=== PATIENT | male | born 1955 | race Caucasian/White ===

== ENCOUNTER → 2018-08-14 | Outpatient (CLI) | payer MEDICARE ==
--- NOTE | 2018-08-18 09:46 | HM ---
HOLTER MONITOR REPORT A 24-hour DCG report. The patient in the diary did not have any entries. Predominant rhythm appears to be sinus with a heart rate ranging from 45 to 105 beats per minute with average heart rate of 63 beats per minute. There is evidence of isolated ventricular ectopy, occasional couplets and triplets noted. There is no evidence of any significant bradyarrhythmia. There was 1 short run of PAD of about 3 to 4 beats noted. No significant bradyarrhythmia was seen. FINAL IMPRESSION: Predominant rhythm is sinus with average heart rate of 63 beats per minute. Isolated PACs and PVCs were noted. Two short runs of PAD were noted. No significant bradyarrhythmia. No symptoms were reported. Overall, this is an unremarkable 24-hour DCG recording. MMODL / IJN: [id number] /
== END | disposition home or self-care (01) ==
LOC: RADECHMAIN 12:21
PROVIDERS: ATTEND Family Medicine
DX: I49.3 Ventricular premature depolarization (principal); I49.1 Atrial premature depolarization; I95.1 Orthostatic hypotension
CPT/HCPCS: 93225; 93226

== ENCOUNTER → 2018-08-31 | Outpatient (CLI) | payer MEDICARE ==
--- NOTE | 2018-09-01 09:01 | ECHOF ---
Referral Reason:R42 Dizziness And Giddin, I49.9 Cardiac Arrhythmia MEASUREMENTS -------- HEIGHT: 198.1 cm WEIGHT: 140.6 kg BP: RVIDd: 3.5 cm (< 3.3) IVSd: 1.5 cm (0.6 - 1.1) LVIDd: 5.0 cm (3.9 - 5.3) LVPWd: 1.5 cm (0.6 - 1.1) IVSs: 1.9 cm LVIDs: 3.3 cm LVPWs: 1.8 cm LA Diam: 4.5 cm (2.7 - 3.8) Ao Diam: 3.8 cm (2.0 - 3.7) AV Cusp: 2.1 cm (1.5 - 2.6) LA Diam: 4.8 cm (2.7 - 3.8) MV EXCURSION: 23.492 mm (> 18.000) MV EF SLOPE: 46 mm/s (70 - 150) EPSS: 0.7 cm MV E Anjel: 0.41 m/s MV DecT: 331 ms MV A Anjel: 0.76 m/s MV E/A Ratio: 0.54 AV maxP.16 mmHg AV meanP.72 mmHg RAP: 5.00 mmHg RVSP: 13.59 mmHg FINDINGS -------- Sinus rhythm. This was a technically adequate study. The left ventricular size is normal. There is moderate concentric left ventricular hypertrophy. O verall left ventricular systolic function is normal with, an EF between 55 - 60 %. The right ventricle is normal in size. The left atrial size is normal. The right atrial size is normal. There is mild aortic regurgitation. There is mild aortic stenosis present. Peak/mean gradient acr oss the Aortic Valve is 16.16mmHg / 9.72mmHg. Mild mitral annular calcification present. Mild mitral regurgitation is present. Mild tricuspid regurgitation present. There is no evidence of pulmonary hypertension. The right v entricular systolic pressure, as measured by Doppler, is 13.59mmHg. There is no pulmonic regurgitation present. The aortic root size is normal. IVC Not well visulized. There is no pericardial effusion. CONCLUSIONS -------- 1. The left ventricular size is normal. 2. There is moderate concentric left ventricular hypertrophy. 3. Overall left ventricular systolic function is normal with, an EF between 55 - 60 %. 4. The right ventricle is normal in size. 5. The left atrial size is normal. 6. The right atrial size is normal. 7. Interatrial Septum not well visulized. 8. There is mild aortic regurgitation. 9. There is mild aortic stenosis present. 10. Peak/mean gradient across the Aortic Valve is 16.16mmHg / 9.72mmHg. 11. Mild mitral annular calcification present. 12. Mild mitral regurgitation is present. 13. Mild tricuspid regurgitation present. 14. There is no evidence of pulmonary hypertension. 15. The right ventricular systolic pressure, as measured by Doppler, is 13.59mmHg. 16. There is no pulmonic regurgitation present. 17. The aortic root size is normal. 18. IVC Not well visulized. 19. There is no pericardial effusion. SUBSTATION INSPECTOR: Manda Zarco RDCS
== END ==
LOC: RADECHMAIN 13:49
PROVIDERS: ATTEND Family Medicine
DX: I08.3 Combined rheumatic disorders of mitral, aortic and tricuspid valves (principal)
CPT/HCPCS: 93306

== ENCOUNTER → 2021-10-20 | Outpatient (CLI) | payer MEDICARE ==
--- NOTE | 2021-10-20 10:43 | CTL ---
EXAMINATION TYPE: CT Low Dose Lung DATE OF EXAM ORDERED: 10/20/2021 HISTORY: Nicotine dependence. Lung cancer screening CT DLP: 149.[address] CTDI: 4.0 mGy Automated exposure control for dose reduction was used. SCREENING VISIT: Baseline COMPARISON: None available TECHNIQUE: Low dose computed tomography scan was performed through the chest at 1 mm thick sections a nd reconstructed images in multiple planes at 1 mm and [address] DIAGNOSTIC QUALITY: Satisfactory FINDINGS: LUNG NODULES: None. LUNGS: COPD: Severity: None Fibrosis: Severity: None Lymph nodes: No pathologically enlarged lymph nodes. Other findings: Linear atelectasis is seen in the right lower lobe. Small atelectasis versus minimal fibrotic changes seen at the anterior aspect of the left upper lobe. RIGHT PLEURAL SPACE: Effusion: None Calcification: None Thickening: None Pneumothorax: None LEFT PLEURAL SPACE: Effusion: None Calcification: None Thickening: None Pneumothorax: None HEART: Heart Size: Normal Coronary Calcification: Moderate to marked. Pericardial Effusion: None OTHER FINDINGS: Upper abdomen: Atrophic left hepatic lobe. Irregular outline of the spleen which could be related to sequela of previous trauma or infarcts. Bony thorax: No aggressive bone lesion. Supraclavicular region: None Other: The pulmonary trunk measures 3.2 cm suggestive of pulmonary hypertension. Ascending aortic ane urysm measuring 4.4 cm. Scattered arterial vascular calcifications. IMPRESSION: No definite pulmonary nodule or suspicious lesion identified. Incidental findings as desc ribed above. CT LUNG RAD AND CT CHEST RECOMMENDATION: Lung-Rad 1 Negative: Continue annual screening with LDCT in 12 months. S Modifier (other clinically significant findings): As above
== END | disposition home or self-care (01) ==
LOC: RADCTMAIN 08:52
PROVIDERS: ATTEND Family Medicine
DX: Z87.891 Personal history of nicotine dependence (principal)
CPT/HCPCS: 71271

== ENCOUNTER → 2022-08-22 | Outpatient (CLI) | payer MEDICARE ==
--- NOTE | 2022-08-23 07:46 | CA ---
Transthoracic Echo Report Name: Torsten Mckeon Age: 67 Gender: M : 1955 Exam Date: 08/22/2022 11:28 Exam Location: [facility] Ht (in): 78 Wt (lb): 310 Ordering Physician: Ruthie Shirley MD Attending/Referring Phys: [employer] Forming Equipment Operator Timur Brumfield RDCS Procedure CPT: Indications: R01.1 Cardiac Hx: Technical Quality: Fair Contrast 1: Total Dose (mL): Contrast 2: Total Dose (mL): MEASUREMENTS (Male / Female) Normal Values 2D ECHO LV Diastolic Diameter PLAX 3.9 cm 4.2 - 5.9 / 3.9 - 5.3 cm LV Systolic Diameter PLAX 3.5 cm LV Fractional Shortening PLAX 10.4 % IVS Diastolic Thickness 1.6 cm 0.6 - 1.0 / 0.6 - 0.9 cm IVS Systolic Thickness 2.4 cm LVPW Diastolic Thickness 1.6 cm 0.6 - 1.0 / 0.6 - 0.9 cm LVPW Systolic Thickness 2.0 cm LV Relative Wall Thickness 0.8 RV Internal Dim ED PLAX 3.2 cm LVOT Diameter 3.2 cm Aortic Root Diameter 3.6 cm LA Systolic Diameter LX 4.5 cm 3.0 - 4.0 / 2.7 - 3.8 cm LA Ao Ratio 1.3 LV Diastolic Volume MOD BP 224.7 cm??? 67 - 155 / 56 - 104 cm??? LV Systolic Volume MOD BP 76.2 cm??? 22 - 58 / 19 - 49 cm??? LV Ejection Fraction MOD BP 66.1 % >= 55 % LV Stroke Volume MOD BP 148.5 cm??? LV Diastolic Volume MOD 4C 234.8 cm??? LV Systolic Volume MOD 4C 83.1 cm??? LV Ejection Fraction MOD 4C 64.6 % LV Stroke Volume MOD 4C 151.7 cm??? LV Diastolic Length 4C 10.1 cm LV Systolic Length 4C 8.3 cm LV Diastolic Volume MOD 2C 210.5 cm??? LV Systolic Volume MOD 2C 70.2 cm??? LV Ejection Fraction MOD 2C 66.7 % LV Stroke Volume MOD 2C 140.4 cm??? LV Diastolic Length 2C 10.3 cm LV Systolic Length 2C 8.3 cm Ascending Aorta Diameter 3.6 cm M-MODE Aortic Root Diameter MM 3.6 cm LA Systolic Diameter MM 4.0 cm LA Ao Ratio MM 1.1 AV Cusp Separation MM 1.7 cm DOPPLER AV Peak Velocity 285.8 cm/s AV Peak Gradient 32.7 mmHg AI Peak Velocity 395.8 cm/s AI Peak Gradient 62.7 mmHg AI Deceleration [place] 162.7 cm/s??? AI Pressure Half Time 705.4 ms LVOT Peak Velocity 116.0 cm/s LVOT Peak Gradient 5.4 mmHg AV Area Cont Eq pk 3.2 cm??? MV Deceleration [place] 478.8 cm/s??? Mitral E Point Velocity 46.0 cm/s Mitral A Point Velocity 83.5 cm/s Mitral E to A Ratio 0.6 MV Deceleration Time 96.2 ms MV E' Velocity 5.2 cm/s Mitral E to MV E' Ratio 8.9 TR Peak Velocity 106.8 cm/s TR Peak Gradient 4.6 mmHg Right Ventricular Systolic Press 14.6 mmHg PV Peak Velocity 87.0 cm/s PV Peak Gradient 3.0 mmHg FINDINGS Left Ventricle Left ventricular ejection fraction is estimated at 55-60 %. Mild concentric left ventricular hypertrophy. Grade 1 diastolic dysfunction. Normal systolic function. Right Ventricle Normal right ventricular size and function. Right Atrium Normal right atrial size. Left Atrium Mild left atrial dilatation. Mitral Valve Mitral valve thickened. Trace to mild mitral regurgitation. Aortic Valve Trileaflet aortic valve. Diffuse thickening (sclerosis) of the aortic valve cusps without reduced excursion. Oeju-ks-rulvjsij aortic stenosis with a peak gradient of 32.7 mmHg and a mean gradient of mmHg.stsl-ig-zaicuigz aortic regurgitation. Tricuspid Valve Trace to mild tricuspid regurgitation. Pulmonic Valve Structurally normal pulmonic valve. Pericardium Normal pericardium. No pericardial effusion. Aorta Moderate aortic dilatation at the level of the sinuses of valsalva (root). Moderately dilated proximal ascending aorta (tube). CONCLUSIONS Technically difficult study for interpretation Normal LV systolic function Aortic sclerosis with kdsm-lu-gclztmrg aortic stenosis and otww-is-itozwvci aortic insufficiency Previewed by: Dr. Geo Jaquez MD (Electronically Signed) Final Date: 23 August 2022 07:45
== END | disposition home or self-care (01) ==
LOC: RADECHMAIN 11:11
PROVIDERS: ATTEND Family Medicine
DX: I35.0 Nonrheumatic aortic (valve) stenosis (principal); R01.1 Cardiac murmur, unspecified
CPT/HCPCS: 93306

== ENCOUNTER → 2022-10-21 | Outpatient (CLI) | payer MEDICARE ==
--- NOTE | 2022-10-21 13:24 | CTL ---
EXAMINATION TYPE: CT Low Dose Lung DATE OF EXAM ORDERED: 10/21/2022 HISTORY: 67-year-old male Z87.891, personal history of tobacco use, current smoker with 30 pack-year history,. Lung cancer screening Automated exposure control for dose reduction was used. SCREENING VISIT: Annual follow-up COMPARISON: 10/20/2021 TECHNIQUE: Low dose computed tomography scan was performed through the chest with coronal and sagitta l reconstructions. CT DIAGNOSTIC QUALITY: Satisfactory FINDINGS: The heart is upper limits of normal in size without pericardial effusion. Mild to moderate aortic leo vular calcifications are noted. LAD and RCA coronary artery calcifications demonstrated. Aneurysm of the ascending aorta may have increased up to 4.7 cm now versus 4.4 cm, previously. Mildly aneurysmal upper descending thoracic aorta 3.8 cm. Conventional arch vessel branching anatomy. No thoracic lymphadenopathy by CT size criteria. Large caliber to the main right and left pulmonary arteries measuring up to 3.4 cm suggesting underly ing pulmonary arterial hypertension. Mild to moderate bronchial wall thickening. Strandy scarring and atelectasis in the lower lungs. Some calcifications along the right lower lobe are unchanged. No consolidation or pleural effusion. No suspicious pulmonary nodules are seen. Tiny hiatal hernia. Small ventral abdominal wall epigastric defects with some bulging omental fat measuring up to 3.4 cm wide. Prominent anterior endplate spondylosis lower thoracic spine. IMPRESSION: 1. LungRADS 2, benign. Stable scattered areas of pleural-parenchymal scarring. 2. Bronchial wall thickening suggests bronchitis or chronic asthma. 3. Pulmonary arterial hypertension. 4. CAD with LAD and RCA coronary artery calcifications. 5. The aneurysmal ascending aorta may have increased up to 4.7 cm now versus 4.4 cm, previously. CT LUNG RAD AND CT CHEST RECOMMENDATION: Lung-Rad 2 Benign Appearance or Behavior: Continue annual sc reening with LDCT in 12 months. S Modifier (other clinically significant findings): S (aneurysmal ascending aorta as above)
== END | disposition home or self-care (01) ==
LOC: RADCTMAIN 08:05
PROVIDERS: ATTEND Family Medicine
DX: Z12.2 Encounter for screening for malignant neoplasm of respiratory organs (principal); I27.21 Secondary pulmonary arterial hypertension; I25.10 Atherosclerotic heart disease of native coronary artery without angina pectoris; I71.21 Aneurysm of the ascending aorta, without rupture; R91.8 Other nonspecific abnormal finding of lung field; F17.210 Nicotine dependence, cigarettes, uncomplicated
CPT/HCPCS: 71271

== ENCOUNTER 2023-05-08 18:07 | Emergency (ER) | payer MEDICARE ==
--- NOTE | 2023-05-08 19:39 | XR ---
EXAMINATION TYPE: XR chest 2V DATE OF EXAM: 05/08/2023 7:02 PM CLINICAL INDICATION:Male, 68 years old with history of sob; [facility] COMPARISON: CT low dose lung 10/21/2022 TECHNIQUE: XR chest 2V. Frontal PA and lateral views of the chest. FINDINGS: Lines/Tubes: None. Heart/mediastinum: Heart appears mildly enlarged. Mediastinal silhouette is otherwise unremarkable. Prominent right hilar density extending towards the lower lobe, and to a lesser degree prominent left hilar density, on correlation with prior CT exam appear to represent enlarged pulmonary arteries; th is suggests pulmonary hypertension. Pulmonary vascularity: Not increased, Lungs/Pleura: Prominent interstitial lung markings are seen scattered throughout the lungs. No eviden ce of focal consolidation, pneumothorax or pleural effusion. Musculoskeletal: No acute osseous abnormality demonstrated in the limits of the exam. Degenerative c hanges of the spine and shoulders. Other findings: None. IMPRESSION: No acute cardiopulmonary abnormality.
[2023-05-08] MEDS ORDERED: ACETAMINOPHEN TAB 325 MG TAB PO STA (20:18)
--- NOTE | 2023-05-08 20:26 | ED ---
General Adult HPI - General Chief complaint: Fever Stated complaint: Fever,Sore throat Time Seen by Provider: 05/08/23 20:18 Source: patient, RN notes reviewed Mode of arrival: ambulatory Limitations: no limitations - History of Present Illness Initial comments: 68-year-old male presents to the emergency department for evaluation of cough and congestion, sore throat, muscle aches with fever 2 days. She states that he took some Sudafed today but has not taken any Tylenol or ibuprofen. Patient endorses some mild shortness of breath. Medical history includes hypertension and DVT patient is taking his blood thinners as prescribed. - Related Data Home Medications Medication Instructions Recorded Confirmed Warfarin [Coumadin] 9 mg PO DAILY 05/24/15 05/24/15 lisinopriL [Zestril] 10 mg PO DAILY 05/24/15 05/24/15 Previous Rx's Medication Instructions Recorded Cephalexin [Keflex] 500 mg PO Q6HR #40 cap 05/24/15 Hydrocodone/Acetaminophen [[place] 1 each PO Q6HR PRN #20 tab 05/24/15 5-325] Nirmatrelvir/Ritonavir [Paxlovid See Rx Instructions .ROUTE 05/08/23 2X150 mg-100 mg (Eua)] .COMPLEX #30 tab Allergies Allergy/AdvReac Type Severity Reaction Status Date / Time No Known Allergies Allergy Verified 05/08/23 18:48 Review of Systems ROS Statement: Those systems with pertinent positive or pertinent negative responses have been documented in the HPI. ROS Other: All systems not noted in ROS Statement are negative. Past Medical History Past Medical History: Deep Vein Thrombosis (DVT), Hypertension History of Any Multi-Drug Resistant Organisms: None Reported Additional Past Surgical History / Comment(s): abdominal surgery Past Psychological History: No Psychological Hx Reported Smoking Status: Current every day smoker Past Alcohol Use History: Occasional Past Drug Use History: None Reported General Exam Limitations: no limitations General appearance: alert, in no apparent distress Head exam: Present: atraumatic, normocephalic, normal inspection Course Vital Signs 05/08/23 05/08/23 18:45 20:20 Temperature 101.8 F H 100.7 F H Pulse Rate 84 79 Respiratory 20 22 Rate Blood Pressure 118/79 108/67 O2 Sat by Pulse 94 L 95 Oximetry Medical Decision Making - Medical Decision Making Was pt. sent in by a medical professional or institution (CARLOS Garrett, FIRE EXTINGUISHER REPAIRER INSPECTOR, urgent care, hospital, or usp...) When possible be specific @ -No Did you speak to anyone other than the patient for history (EMS, parent, family, police, friend...)? What history was obtained from this source @ -No Did you review nursing and triage notes (agree or disagree)? Why? @ -I reviewed and agree with nursing and triage notes Were old charts reviewed (outside hosp., previous admission, EMS record, old EKG, old radiological studies, urgent care reports/EKG's, usp records)? Report findings @ -No old charts were reviewed Differential Diagnosis (chest pain, altered mental status, abdominal pain women, abdominal pain men, vaginal bleeding, weakness, fever, dyspnea, syncope, headache, dizziness, GI bleed, back pain, seizure, CVA, palpatations, mental health, musculoskeletal)? @ -INFLUENZA, RSV, PNEUMONIA, THIS LIST IS NOT ALL-INCLUSIVE EKG interpreted by me (3pts min.). @ -None X-rays interpreted by me (1pt min.). @ -CC shows no acute process CT interpreted by me (1pt min.). @ -None done U/S interpreted by me (1pt. min.). @ -None done What testing was considered but not performed or refused? (CT, X-rays, U/S, labs)? Why? @ -None What meds were considered but not given or refused? Why? @ -None Did you discuss the management of the patient with other professionals (professionals i.e. CARLOS Garrett, FIRE EXTINGUISHER REPAIRER INSPECTOR, lab, RT, psych nurse, 7th grade social studies teacher, donor center technician, teacher, special officer, registered nurse hh case manager)? Give summary @ -No Was smoking cessation discussed for >3mins.? @ -No Was critical care preformed (if so, how long)? @ -No Were there social determinants of health that impacted care today? How? (Homelessness, low income, unemployed, alcoholism, drug addiction, transportation, low edu. Level, literacy, decrease access to med. care, [facility], rehab)? @ -No Was there de-escalation of care discussed even if they declined (Discuss DNR or withdrawal of care, Hospice)? DNR status @ -No What co-morbidities impacted this encounter? (DM, HTN, Smoking, COPD, CAD, Cancer, CVA, ARF, Chemo, Hep., AIDS, mental health diagnosis, sleep apnea, morbid obesity)? @ -None Was patient admitted / discharged? Hospital course, mention meds given and route, prescriptions, significant lab abnormalities, going to OR and other p ertinent info. @ -Discharged. Patient presents to the emergency department for evaluation of cough, congestion, sore throat, fever 2 days. Patient did not take any antipyretics today. Patient was given a dose of Tylenol in the emergency department. This x-ray obtained which shows no acute infiltrate. Influenza, RSV negative. Covid positive. Advised patient on symptomatic treatment. Patient understanding and agreeable with plan. Prescription sent the patient's pharmacy for Paxlovid. Patient is stable at time of discharge. Case discussed with Dr. Church Undiagnosed new problem with uncertain prognosis? @ -No Drug Therapy requiring intensive monitoring for toxicity (Heparin, Nitro, Insulin, Cardizem)? @ -No Were any procedures done? @ -No Diagnosis/symptom? @ -covid-19 Acute, or Chronic, or Acute on Chronic? @ -acute Uncomplicated (without systemic symptoms) or Complicated (systemic symptoms)? @ -complicated Side effects of treatment? @ -No Exacerbation, Progression, or Severe Exacerbation? @ -No Poses a threat to life or bodily function? How? (Chest pain, USA, PA, pneumonia, PE, COPD, DKA, ARF, appy, cholecystitis, CVA, Diverticulitis, Homicidal, Suicidal, threat to staff... and all critical care pts) @ -No - Lab Data Lab Results 05/08/23 Range/Units 18:50 Influenza Type A (PCR) Not Detected (Not Detectd) Influenza Type B (PCR) Not Detected (Not Detectd) RSV (PCR) Not Detected (Not Detectd) SARS-CoV-2 (PCR) Detected A (Not Detectd) Disposition Clinical Impression: COVID-19 Disposition: HOME SELF-CARE Condition: Stable Instructions (If sedation given, give patient instructions): Fever in Adults (ED), COVID-19 (Coronavirus Disease 2019) (ED) Additional Instructions: Please alternate acetaminophen and ibuprofen for fevers and muscle aches. He may also utilize kquj-acs-cumoqxe cough syrups. Please follow up with her primary care provider. Return to the emergency department for new or worsening symptoms. Prescriptions: Nirmatrelvir/Ritonavir [Paxlovid 2X150 mg-100 mg (Eua)] See Rx Instructions .ROUTE .COMPLEX #30 tab Is patient prescribed a controlled substance at d/c from ED?: No Referrals: None,Stated [REFERRING] - 1-2 days
[2023-05-08 20:34] VITALS: BP 108/67; PULSE 79; RESP 22; TEMP 100.7
== END 2023-05-08 20:46 | disposition home or self-care (01) ==
LOC: EC 18:07
DX: U07.1 COVID-19 (principal); I10 Essential (primary) hypertension; F17.200 Nicotine dependence, unspecified, uncomplicated; Z79.899 Other long term (current) drug therapy
CPT/HCPCS: 71046; 87636; 99283

== ENCOUNTER 2023-11-01 05:41 | Day surgery (SDC) | payer MEDICARE ==
[2023-11-01] MEDS ORDERED: NITROGLYCERIN SL TABS 0.4 MG TAB SUBLINGUAL PRN (05:55)
[2023-11-01] MEDS ORDERED: ALPRAZolam 0.5 MG TAB PO PRN (05:55)
[2023-11-01] MEDS ORDERED: ALPRAZolam 0.25 MG TAB PO PRN (05:55)
[2023-11-01] MEDS: SODIUM CHLORIDE 0.9% 1,000 ML in EMPTY BAG 1 BAG IV SCH (06:09)
[2023-11-01] MEDS: IV FLUID CONTINUATION 1,000 ML IV ONE (06:15)
[2023-11-01 06:22] VITALS: RESP 16; TEMP 98
[2023-11-01 06:56] LABS: Basophils # (A) 0.1 k/uL (0-0.2); Basophils % (A) 1 %; Eosinophils # (A) 0.4 k/uL (0-0.7); Eosinophils % (A) 5 %; HCT 45.9 % (39.0-53.0); HGB 14.6 gm/dL (13.0-17.5); Lymphocytes # (A) 2.4 k/uL (1.0-4.8); Lymphocytes % (A) 33 %; MCHC 31.8 g/dL (31.0-37.0); MCV 94.3 fL (80.0-100.0); Mean Platelet Volume 8.1; Monocytes # (A) 0.6 k/uL (0-1.0); Monocytes % (A) 8 %; Neutrophils # (A) 3.8 k/uL (1.3-7.7); Neutrophils % (A) 51 %; Platelet Count 178 k/uL (150-450); RBC 4.87 m/uL (4.30-5.90); RDW 13.6 % (11.5-15.5); WBC 7.4 k/uL (3.8-10.6)
[2023-11-01] MEDS ORDERED: ASPIRIN 325 MG TAB PO ONE (07:00)
[2023-11-01 07:04] LABS: African American GFR (CKD) 80 (>60 ml/min/1.73 sqM); Anion Gap 5 mmol/L; Blood Urea Nitrogen 22 mg/dL (9-20); Calcium 9.1 mg/dL (8.4-10.2); Carbon Dioxide 22 mmol/L (22-30); Chloride 114 mmol/L (98-107); Glucose 88 mg/dL (74-99); Non-African American GFR(CKD) 69 (>60 ml/min/1.73 sqM); Potassium 4.5 mmol/L (3.5-5.1); Sodium 141 mmol/L (137-145)
[2023-11-01] MEDS ORDERED: HEPARIN SODIUM 1,000 UN/ML (10ML VL) ONE (07:27)
[2023-11-01] MEDS ORDERED: fentaNYL (PF) 50 MCG/ML 2 ML AMP ONE (07:27)
[2023-11-01] MEDS ORDERED: VERAPAMIL 2.5 MG/ML 2 ML AMP ONE (07:27)
[2023-11-01] MEDS ORDERED: LIDOCAINE 1% INJ 10MG/ML (20 ML MDV) ONE (07:27)
[2023-11-01] MEDS: MIDAZOLAM 2 MG/2 ML VIAL IVP ONE (07:32)
[2023-11-01] MEDS: fentaNYL (PF) 50 MCG/1 ML VIAL IVP ONE (07:32)
[2023-11-01] MEDS: LIDOCAINE 1% INJ 10MG/ML (20 ML MDV) SQ ONE (07:33)
[2023-11-01] MEDS: VERAPAMIL SYRINGE (5 MG/10 ML) INTRAARTER ONE (07:37)
[2023-11-01] MEDS: HEPARIN SODIUM 1,000 UN/ML (10ML VL) IVP ONE (07:42)
[2023-11-01] MEDS: HEPARIN SODIUM,PORCINE 10,000 UNIT in SODIUM CHLORIDE 0.9% 1,000 ML IRRIGATION PRN (07:43)
[2023-11-01] MEDS: HEPARIN SODIUM,PORCINE (1 ML) 2,500 UNIT in SODIUM CHLORIDE 0.9% 250 ML IRRIGATION PRN (07:43)
[2023-11-01] MEDS: IOPAMIDOL-370 100ML BTL INJ ONE ×2 (07:59)
--- NOTE | 2023-11-01 08:11 | P.CARDCATH ---
Description of Procedure: PROCEDURES PERFORMED: Left heart catheterization, bilateral coronary angiography, ultrasound guided arterial access, iFR LAD INDICATION: Abnormal stress test CONSENT:I have discussed the risks, benefits and alternative therapies for the above-mentioned procedure and for both sedation/analgesia as well as necessary blood product administration, if indicated, as they pertain to this patient. The patient has indicated understanding and acceptance of the risks and procedures discussed. PROCEDURE: After the risks, benefits and alternatives of the above mentioned procedure explained in detail with the patient, informed consent was obtained. Patient was taken to the catheterization lab and prepped and draped in usual fashion. Ultrasound guidance was used to assess for arterial access. 1% lidocaine was used to anesthetize the right radial artery. A 6-[place] sheath was placed in the right radial artery using modified Seldinger technique and ultrasound guidance. Left coronary angiography was performed with a 5-[place] JL 3.5 catheter and right coronary angiography was performed with a 5-[place] FR5 catheter in various views. A 5-[place] FR5 catheter was inserted into the left ventricle and pressure measurements were obtained. the decision was made to perform functional assessment of LAD. Heparin was given. A 6-[place] CLS 4.0 guide was used to engage the left main. A 0.014 pressure wire was advanced into left main and normalized. It was then advanced 1 cm distal to the mid LAD lesion and was performed and was normal at 0.91. The right radial sheath was removed and a TR band was placed with hemostasis achieved. The patient tolerated the procedure well. Patient was transported back to the post catheterization holding area in stable condition. Conscious Sedation: Patient was monitored under the direct supervision of myself for conscious sedation using Versed and fentanyl for a total duration of 28 mi nutes HEMODYNAMICS: Aorta: 138/72 LV: 118/5, LVEDP 16 with a mean gradient 26 mmHg SELECTIVE CORONARY ARTERIOGRAPHY: LEFT MAIN: The left main is a large short caliber, nearly dual ostia vessel w hich bifurcates into the LAD and circumflex. There is no significant stenosis. LEFT ANTERIOR DESCENDING CORONARY ARTERY: LAD is a large caliber vessel which wraps around to the apex. There is a proximal LAD 50% stenosis and 40% proximal to mid LAD stenosis. LEFT CIRCUMFLEX CORONARY ARTERY: Left circumflex is a small caliber vessel without significant stenosis. RIGHT CORONARY ARTERY: The right coronary artery is a large caliber vessel which gives off a PDA and PLV branch and is the dominant vessel. There is diffuse mild 10-20% stenosis. FINAL IMPRESSION: 1. CAD as described above including 10-20% RCA, 50% LAD stenosis 2. High normal left sided filling pressures 3. Mild to moderate aortic stenosis with a mean gradient of 26mmHg 4. Normal iFR of LAD PLAN: 1. Aggressive risk factor modification per most recent ACC/AHA guidelines. 2. Follow-up in the office in 1-2 weeks.
[2023-11-01 10:54] VITALS: BP 123/67; PULSE 58
== END 2023-11-01 11:25 | disposition home or self-care (01) ==
LOC: CATHCVL 05:41
PROVIDERS: ATTEND Internal Medicine
DX: I25.10 Atherosclerotic heart disease of native coronary artery without angina pectoris (principal); I35.0 Nonrheumatic aortic (valve) stenosis
CPT/HCPCS: 93458; 93799; 80048; 85025; 93571; C1887; C1769 ×2; C1894; J2250; J1644 ×3; J2001; Q9967; J3010

== ENCOUNTER → 2024-04-10 | Outpatient (CLI) | payer MEDICARE ==
--- NOTE | 2024-04-10 23:24 | MR ---
EXAMINATION TYPE: MR shoulder RT wo con DATE OF EXAM: 04/10/2024 6:32 AM COMPARISON: None. CLINICAL INDICATION: Male, 69 years old with history of M25.511 M19.011 M12.811, Right shoulder pain, limited ROM, S/P fall 12-30-23. Possible rotator cuff tear. IV Contrast: cc (None if empty) TECHNIQUE: Multiplanar, multisequence imaging of the right shoulder is performed without contrast. FINDINGS: Rotator Cuff: Large full-thickness retracted tears of the supraspinatus and infraspinatus tendons. [place]ge full-thickness retracted tear of the subscapularis tendon. Moderate to severe diffuse muscular at rophy is present. Acromioclavicular Joint: Moderate to severe narrowing and superior capsular hypertrophy. Bsyy-jg-hlae rate spurring. Glenohumeral Joint: Masses joint effusion. Anterior narrowing is seen. Labrum: Blunted labrum consistent with prominent tear. Labral anchor is torn. Biceps Tendon: The long head of biceps is not identified in normal location within bicipital groove. Bone marrow signal: No focal abnormal marrow signal is appreciated. Other: No additional significant abnormality is appreciated. IMPRESSION: 1. Massive glenohumeral joint effusion. 2. Full-thickness retracted tears of supraspinatus, infraspinatus, and subscapularis tendons. 3. Large superior labral tear with disruption of the biceps anchor. Biceps tendon is present is locat ed and torn. [facility], , 04/10/2024 11:22 PM
== END | disposition home or self-care (01) ==
LOC: RADMRIMAIN 05:42
PROVIDERS: ATTEND Orthopaedic Surgery
DX: M12.811 Other specific arthropathies, not elsewhere classified, right shoulder (principal); M25.411 Effusion, right shoulder; S46.011A Strain of muscle(s) and tendon(s) of the rotator cuff of right shoulder, initial encounter